=== PATIENT | male | born 1960 | race Caucasian/White ===

== ENCOUNTER 2020-01-11 15:30 | Emergency (ER) | payer OTHER ==
[~2020-01-11] VITALS: Ht 180.3 cm; Wt 74.8 kg
== END 2020-01-11 17:14 | disposition home or self-care (01) ==
LOC: ER 15:30
DX: S66.123A Laceration of flexor muscle, fascia and tendon of left middle finger at wrist and hand level, initial encounter (principal); W27.8XXA Contact with other nonpowered hand tool, initial encounter; Y93.89 Activity, other specified; Y92.89 Other specified places as the place of occurrence of the external cause; Y99.8 Other external cause status

== ENCOUNTER 2020-01-18 07:09 | Day surgery (SDC) | payer OTHER | END 2020-01-18 16:40 | disposition home or self-care (01) | LOC: CIR.AMB 07:09 | PROVIDERS: ATTEND Orthopaedic Surgery Hand Surgery | DX: S56.423A Laceration of extensor muscle, fascia and tendon of right middle finger at forearm level, initial encounter (principal); Z20.828 Contact with and (suspected) exposure to other viral communicable diseases ==

== ENCOUNTER 2021-01-21 09:20 | Emergency (ER) | payer OTHER ==
[~2021-01-21] VITALS: Ht 180.3 cm; Wt 74.4 kg
== END 2021-01-21 10:02 | disposition home or self-care (01) ==
LOC: ER 09:20
DX: S61.452A Open bite of left hand, initial encounter (principal); W55.01XA Bitten by cat, initial encounter; Y92.019 Unspecified place in single-family (private) house as the place of occurrence of the external cause

== ENCOUNTER 2021-07-23 08:43 | Outpatient (CLI) | payer OTHER | END 2021-07-23 08:50 | disposition home or self-care (01) | LOC: RX STUDY 08:43 | PROVIDERS: ATTEND Specialist | DX: K21.9 Gastro-esophageal reflux disease without esophagitis (principal) ==